=== PATIENT | female | born 1985 | race Caucasian/White ===

== ENCOUNTER 2023-04-10 19:16 | Emergency (ER) | payer MEDICAID ==
[2023-04-10] MEDS ORDERED: Ondansetron 4 MG/2 ML SDV IVPUSH ONE (19:18)
[2023-04-10] MEDS ORDERED: Morphine 4 MG/ML Syringe ONE (19:18)
[2023-04-10] MEDS ORDERED: Morphine 4 MG/ML Syringe IVPUSH ONE (19:18)
[2023-04-10] MEDS ORDERED: Ondansetron 4 MG/2 ML SDV ONE (19:19)
[2023-04-10] MEDS ORDERED: Iopamidol 755 MG/ML 500 ML Multipack Bottle IVPUSH ONE (19:44)
[2023-04-10] MEDS ORDERED: HYDROmorphone 1 MG/ML Syringe IVPUSH ONE (20:50)
== END 2023-04-10 22:29 | disposition home or self-care (01) ==
LOC: MW.ED 19:16
DX: M54.50 Low back pain, unspecified (principal); M54.2 Cervicalgia; R10.32 Left lower quadrant pain; Z88.8 Allergy status to other drugs, medicaments and biological substances; V86.65XA Passenger of 3- or 4- wheeled all-terrain vehicle (ATV) injured in nontraffic accident, initial encounter
CPT/HCPCS: 36415; 70450; 71260; 72125; 72128; 72131; 73110; 73551; 73560; 74177; 84703; 96374; 96375; 99285; J1170; J2270; J2405; Q9967; 99284

== ENCOUNTER 2023-11-24 07:57 | Emergency (ER) | payer MEDICAID ==
[2023-11-24 08:41] LABS: BASOPHILS ABSOLUTE AUTO 0.05 K/uL (0.00-0.20); EOSINOPHILS ABSOLUTE AUTO 0.05 K/uL (0.00-0.45); HEMATOCRIT 40.1 % (37.0-47.0); HEMOGLOBIN 13.7 g/dL (12.0-16.0); LYMPHOCYTES ABSOLUTE AUTO 1.71 K/uL (1.00-4.80); LYMPHOCYTES PERCENT AUTO 34.9 % (24.0-44.0); MEAN CORPUSCULAR HEMOGLOBIN 29.8 pg (28.0-32.0); MEAN CORPUSCULAR HGB CONC 34.2 g/dL (32.0-36.0); MEAN CORPUSCULAR VOLUME 87.2 fL (83.0-99.0); MEAN PLATELET VOLUME 10.3 fL (9.4-12.3); MONOCYTES ABSOLUTE AUTO 0.38 K/uL (0.00-0.80); MONOCYTES PERCENT AUTO 7.8 % (0.0-8.0); NEUTROPHILS ABSOLUTE AUTO 2.71 K/uL (1.80-7.70); NEUTROPHILS PERCENT AUTO 55.3 % (41.0-71.0); PLATELET COUNT,PLT 209 K/uL (150-400)
[2023-11-24 08:49] LABS: INR 1.01 (0.86-1.11)
[2023-11-24] MEDS: Sodium Chloride 0.9% 1,000 ML IV ONE (08:49)
[2023-11-24] MEDS: Sodium Chloride 0.9% 2.5 ML Syringe FLUSH PRN (08:50)
[2023-11-24] MEDS: Sodium Chloride 0.9% 10 ML Syringe FLUSH PRN (08:50)
[2023-11-24] MEDS: Alum Hydro/Mag Hydro/Simeth XS 15 ML, Metoclopramide 5 MG, Lidocaine 2% 5 ML PO ONE (09:03)
[2023-11-24] MEDS: Ondansetron 4 MG/2 ML SDV IVPUSH ONE (09:09)
[2023-11-24 09:12] LABS: A/G RATIO 1.1 (0.9-1.6); ALANINE AMINOTRANSFERASE,ALT 38 IU/L (14-63); ALBUMIN 3.9 g/dL (3.4-5.0); ALKALINE PHOSPHATASE 64 U/L (46-116); ASPARTATE AMNIOTRANSFERASE,AST 16 IU/L (15-37); BILIRUBIN TOTAL 0.4 mg/dL (0.2-1.0); BLOOD UREA NITROGEN,BUN 15 mg/dL (7.0-18.0); CARBON DIOXIDE,CO2 25.9 mmol/L (21.0-32.0); CHLORIDE,CL 105 mmol/L (98-107); CREATININE 0.9 mg/dL (0.6-1.0); EST CRCL DRUG DOSING (CG) 88.57 mL/min; GLUCOSE RANDOM 85 mg/dL (74-106); LIPASE 109 U/L (16-77); POTASSIUM,K 4.2 mmol/L (3.5-5.1); PROTEIN TOTAL,TP 7.3 g/dL (6.4-8.2); SODIUM,NA 143 mmol/L (136-145)
[2023-11-24 09:14] LABS: ESTIMATED GFR 84 mL/min (>60); ETHANOL BLOOD MEDICAL < 3.0 mg/dL
[2023-11-24 09:25] LABS: LACTIC ACID 1.1 mmol/L (0.4-2.0)
[2023-11-24 09:37] LABS: AMPHETAMINES SCREEN, URINE NEGATIVE (CUTOFF=500); BARBITURATE SCREEN,URINE NEGATIVE (CUTOFF=200); BENZODIAZEPINES SCREEN,URINE NEGATIVE (CUTOFF=150); BUPRENORPHINE SCREEN,URINE NEGATIVE (CUTOFF=10); METHADONE SCREEN, URINE NEGATIVE (CUTOFF=200); METHAMPHETAMINES SCREEN, URINE NEGATIVE (CUTOFF=500); OXYCODONE SCREEN,URINE NEGATIVE (CUT0FF=100); PCP SCREEN,URINE NEGATIVE (CUTOFF=25); THC SCREEN,URINE 20 NG/ML NEGATIVE (CUTOFF=50)
[2023-11-24] MEDS: Iopamidol 755 MG/ML 500 ML Multipack Bottle IVPUSH STA (10:06)
[2023-11-24] MEDS: Alum Hydro/Mag Hydro/Simeth XS 15 ML, Lidocaine 2% 5 ML PO ONE (10:53)
== END 2023-11-24 11:18 | disposition home or self-care (01) ==
LOC: MW.ED 07:57
DX: R10.84 Generalized abdominal pain (principal); Z88.8 Allergy status to other drugs, medicaments and biological substances; Z79.899 Other long term (current) drug therapy; Z90.710 Acquired absence of both cervix and uterus
CPT/HCPCS: 36415; 74177; 80053; 80305; 80307; 81025; 83605; 83690; 84484; 85025; 85610; 96361; 96374; 99284; A9270; J2405; J3490; J7030; Q9967; 93005

== ENCOUNTER 2024-02-28 08:02 | Day surgery (SDC) | payer MEDICAID ==
[2024-02-28] MEDS: Lactated Ringers 1,000 ML IV SCH (08:31)
[2024-02-28] MEDS ORDERED: propofoL 50 ML ONE (08:34)
[2024-02-28] MEDS ORDERED: Midazolam 1 MG/ML 2 ML SDV ONE (08:34)
[2024-02-28] MEDS ORDERED: Lidocaine 2% 5 ML SDV ONE (08:34)
[2024-02-28] MEDS ORDERED: Propofol 200 MG/20 ML SDV ONE ×2 (09:17→09:43)
[2024-02-28] MEDS ORDERED: Lactated Ringers 1,000 ML IV SCH (10:00)
== END 2024-02-28 10:40 | disposition home or self-care (01) ==
LOC: MW.SDS 08:02
PROVIDERS: ATTEND Surgery
DX: K21.01 Gastro-esophageal reflux disease with esophagitis, with bleeding (principal); K29.51 Unspecified chronic gastritis with bleeding; K59.09 Other constipation; K21.9 Gastro-esophageal reflux disease without esophagitis; G89.4 Chronic pain syndrome; Z79.899 Other long term (current) drug therapy; Z88.8 Allergy status to other drugs, medicaments and biological substances
CPT/HCPCS: 43239; 45378; J2250; J2704; J7120; 00813; J3490

== ENCOUNTER 2024-03-15 08:04 | Day surgery (SDC) | payer MEDICAID ==
[2024-03-15] MEDS ORDERED: Sodium Chloride 0.9% 20 ML SDV IV PRN (08:28)
[2024-03-15] MEDS ORDERED: Sodium Chloride 0.9% 10 ML Syringe FLUSH PRN (08:28)
[2024-03-15] MEDS ORDERED: Sodium Chloride 0.9% 2.5 ML Syringe FLUSH PRN (08:28)
[2024-03-15] MEDS: Sodium Chloride 0.9% 1,000 ML IV ONE (08:40)
[2024-03-15] MEDS: Ondansetron 4 MG/2 ML SDV IVPUSH ONE (08:40)
[2024-03-15] MEDS: HYDROmorphone 0.5 MG/0.5 ML Syringe IVPUSH ONE (08:40)
[2024-03-15 08:50] LABS: BASOPHILS ABSOLUTE AUTO 0.02 K/uL (0.00-0.20); BASOPHILS PERCENT AUTO 0.4 % (0.0-1.0); EOSINOPHILS ABSOLUTE AUTO 0.02 K/uL (0.00-0.45); EOSINOPHILS PERCENT AUTO 0.4 % (0.0-6.0); HEMATOCRIT 37.4 % (37.0-47.0); HEMOGLOBIN 12.6 g/dL (12.0-16.0); IMMATURE GRAN ABSOLUTE AUTO 0.01 K/uL (0.00-0.05); IMMATURE GRAN PERCENT AUTO 0.2 % (0.0-0.4); LYMPHOCYTES ABSOLUTE AUTO 1.33 K/uL (1.00-4.80); LYMPHOCYTES PERCENT AUTO 25.8 % (24.0-44.0); MEAN CORPUSCULAR HEMOGLOBIN 29.9 pg (28.0-32.0); MEAN CORPUSCULAR HGB CONC 33.7 g/dL (32.0-36.0); MEAN CORPUSCULAR VOLUME 88.6 fL (83.0-99.0); MEAN PLATELET VOLUME 9.5 fL (9.4-12.3); MONOCYTES ABSOLUTE AUTO 0.53 K/uL (0.00-0.80); MONOCYTES PERCENT AUTO 10.3 % (0.0-8.0); NEUTROPHILS ABSOLUTE AUTO 3.25 K/uL (1.80-7.70); NEUTROPHILS PERCENT AUTO 62.9 % (41.0-71.0); PLATELET COUNT,PLT 218 K/uL (150-400); RED BLOOD CELL COUNT 4.22 M/uL (4.10-5.30); WHITE BLOOD CELL COUNT,WBC 5.16 K/uL (3.9-11.3)
[2024-03-15 09:04] LABS: INR 1.01 (0.86-1.11)
[2024-03-15 09:19] LABS: A/G RATIO 1.2 (0.9-1.6); ALBUMIN 3.6 g/dL (3.4-5.0); BILIRUBIN TOTAL 0.3 mg/dL (0.2-1.0); CALCIUM 8.5 mg/dL (8.5-10.1); CARBON DIOXIDE,CO2 30.5 mmol/L (21.0-32.0); CREATININE 0.8 mg/dL (0.6-1.0); EST CRCL DRUG DOSING (CG) 99.64 mL/min; POTASSIUM,K 3.9 mmol/L (3.5-5.1); PROTEIN TOTAL,TP 6.6 g/dL (6.4-8.2)
[2024-03-15 09:22] LABS: LACTIC ACID 0.5 mmol/L (0.4-2.0)
[2024-03-15] MEDS ORDERED: propofoL 100 ML ONE (09:56)
[2024-03-15] MEDS ORDERED: Bupivacaine 0.25% 30 ML SDV ONE ×2 (09:57→10:00)
[2024-03-15] MEDS ORDERED: Ropivacaine 0.5% 5 MG/ML 30 ML SDV ONE (09:57)
[2024-03-15] MEDS ORDERED: Morphine 10 MG/ML SDV ONE (09:57)
[2024-03-15] MEDS ORDERED: Ondansetron 4 MG/2 ML SDV ONE ×2 (10:06→11:51)
[2024-03-15] MEDS ORDERED: Sugammadex Sodium 200 MG/2 ML VIAL IV ONE (10:06)
[2024-03-15] MEDS ORDERED: Dexamethasone 4 MG/ML 5 ML MDV ONE (10:06)
[2024-03-15] MEDS ORDERED: Rocuronium Bromide 50 MG/5 ML Syringe ONE ×2 (10:06→10:59)
[2024-03-15] MEDS ORDERED: Lidocaine 1% 5 ML VIAL ONE (10:06)
[2024-03-15] MEDS ORDERED: Indocyanine Green 25 MG SDV ONE (10:11)
[2024-03-15] MEDS ORDERED: Bupivacaine 0.5% 10 ML SDV ONE (10:16)
[2024-03-15] MEDS ORDERED: ceFAZolin 1 GM Vial ONE (10:17)
[2024-03-15] MEDS ORDERED: Midazolam 1 MG/ML 2 ML SDV ONE (10:21)
[2024-03-15] MEDS ORDERED: ceFAZolin 2 GM Vial ONE (10:28)
[2024-03-15] MEDS ORDERED: ceFAZolin 2 GM in Sodium Chloride 0.9% 50 ML IV ONE (10:33)
[2024-03-15] MEDS ORDERED: Albuterol 0.083% 2.5 MG/3 ML Neb Soln NEB PRN (10:39)
[2024-03-15] MEDS ORDERED: Morphine 2 MG/ML SYRINGE IVPUSH PRN ×2 (10:39→12:17)
[2024-03-15] MEDS ORDERED: droPERidol 5 MG/2 ML SDV IVPUSH PRN (10:39)
[2024-03-15] MEDS ORDERED: Metoclopramide 10 MG/2 ML SDV IVPUSH PRN (10:39)
[2024-03-15] MEDS ORDERED: Ondansetron 4 MG/2 ML SDV IVPUSH PRN (10:39)
[2024-03-15] MEDS ORDERED: Naloxone 0.4 MG/ML SDV IVPUSH PRN (10:39)
[2024-03-15] MEDS ORDERED: HYDROmorphone 1 MG/ML Syringe IVPUSH PRN (10:39)
[2024-03-15] MEDS: Lactated Ringers 1,000 ML IV SCH (10:42)
[2024-03-15] MEDS ORDERED: Scopalamine 1mg/3day Transdermal Patch TOP ONE (10:42)
[2024-03-15] MEDS ORDERED: dexmedeTOMIDine HCl 200 MCG/2 ML SDV ONE (10:44)
[2024-03-15] MEDS ORDERED: fentaNYL 100 MCG/2 ML SDV ONE (11:16)
[2024-03-15] MEDS ORDERED: Ketorolac 30 MG/ML SDV ONE (11:49)
[2024-03-15] MEDS ORDERED: Acetaminophen/HYDROcodone 325-5 MG Tab PO PRN ×2 (12:17→12:26)
[2024-03-15] MEDS: fentaNYL 50 MCG/ML SDV IVPUSH PRN (12:25)
[2024-03-15] MEDS ORDERED: Lactated Ringers 1,000 ML IV SCH (12:30)
== END 2024-03-15 14:00 | disposition home or self-care (01) ==
LOC: MW.SDS 08:04 → MW.ED 08:04 → MW.SDS 09:41
PROVIDERS: ATTEND Surgery
DX: K80.10 Calculus of gallbladder with chronic cholecystitis without obstruction (principal); G89.4 Chronic pain syndrome; F32.9 Major depressive disorder, single episode, unspecified; K21.9 Gastro-esophageal reflux disease without esophagitis; Z79.899 Other long term (current) drug therapy; Z88.8 Allergy status to other drugs, medicaments and biological substances
CPT/HCPCS: 36415; 47562; 80053; 83605; 83690; 85025; 85610; 96361; 96374; 96375; 99284; A9270; J0131; J0665; J0690; J1100; J1170; J1885; J2250; J2270; J2405; J2704; J2795; J3010; J3490; J7030; J7120; 00790; 64488; 99285

== ENCOUNTER 2024-03-30 16:11 | Emergency (ER) | payer MEDICAID ==
[2024-03-30] MEDS ORDERED: Sodium Chloride 0.9% 10 ML Syringe FLUSH PRN (16:46)
[2024-03-30] MEDS ORDERED: Sodium Chloride 0.9% 2.5 ML Syringe FLUSH PRN (16:46)
[2024-03-30 17:02] LABS: BASOPHILS ABSOLUTE AUTO 0.11 K/uL (0.00-0.20); BASOPHILS PERCENT AUTO 1.5 % (0.0-1.0); EOSINOPHILS ABSOLUTE AUTO 0.07 K/uL (0.00-0.45); EOSINOPHILS PERCENT AUTO 0.9 % (0.0-6.0); HEMATOCRIT 38.7 % (37.0-47.0); HEMOGLOBIN 13.1 g/dL (12.0-16.0); IMMATURE GRAN ABSOLUTE AUTO 0.01 K/uL (0.00-0.05); IMMATURE GRAN PERCENT AUTO 0.1 % (0.0-0.4); LYMPHOCYTES ABSOLUTE AUTO 1.93 K/uL (1.00-4.80); LYMPHOCYTES PERCENT AUTO 25.6 % (24.0-44.0); MEAN CORPUSCULAR HGB CONC 33.9 g/dL (32.0-36.0); MEAN CORPUSCULAR VOLUME 88.6 fL (83.0-99.0); MEAN PLATELET VOLUME 9.2 fL (9.4-12.3); MONOCYTES ABSOLUTE AUTO 0.55 K/uL (0.00-0.80); MONOCYTES PERCENT AUTO 7.3 % (0.0-8.0); NEUTROPHILS ABSOLUTE AUTO 4.87 K/uL (1.80-7.70); NEUTROPHILS PERCENT AUTO 64.6 % (41.0-71.0); PLATELET COUNT,PLT 258 K/uL (150-400); RED BLOOD CELL COUNT 4.37 M/uL (4.10-5.30); WHITE BLOOD CELL COUNT,WBC 7.54 K/uL (3.9-11.3)
[2024-03-30] MEDS: Sodium Chloride 0.9% 1,000 ML IV STA (17:05)
[2024-03-30] MEDS: Ondansetron 4 MG/2 ML SDV IVPUSH STA (17:05)
[2024-03-30] MEDS: Morphine 4 MG/ML Syringe IVPUSH STA ×2 (17:20→18:18)
[2024-03-30 17:36] LABS: A/G RATIO 1.1 (0.9-1.6); ALBUMIN 3.9 g/dL (3.4-5.0); BILIRUBIN TOTAL 0.3 mg/dL (0.2-1.0); CALCIUM 8.7 mg/dL (8.5-10.1); CARBON DIOXIDE,CO2 30.1 mmol/L (21.0-32.0); EST CRCL DRUG DOSING (CG) 79.72 mL/min; POTASSIUM,K 3.7 mmol/L (3.5-5.1); PROTEIN TOTAL,TP 7.5 g/dL (6.4-8.2)
[2024-03-30 17:38] LABS: MAGNESIUM 1.7 mg/dL (1.8-2.4)
== END 2024-03-30 18:56 | disposition home or self-care (01) ==
LOC: MW.ED 16:11
DX: R10.13 Epigastric pain (principal); R10.10 Upper abdominal pain, unspecified; R11.2 Nausea with vomiting, unspecified; Z75.8 Other problems related to medical facilities and other health care; Z90.49 Acquired absence of other specified parts of digestive tract; Z90.710 Acquired absence of both cervix and uterus; Z79.899 Other long term (current) drug therapy; Z79.891 Long term (current) use of opiate analgesic; Z88.8 Allergy status to other drugs, medicaments and biological substances
CPT/HCPCS: 36415; 80053; 83735; 84484; 84703; 85025; 93005; 96361; 96374; 96375; 99284; J2270; J2405; J7030; 93010

== ENCOUNTER 2024-06-28 19:13 | Emergency (ER) | payer MEDICAID, OTHER ==
[2024-06-28] MEDS: Ondansetron 4 MG/2 ML SDV IVPUSH ONE (19:52)
[2024-06-28 20:09] LABS: BASOPHILS ABSOLUTE AUTO 0.06 K/uL (0.00-0.20); BASOPHILS PERCENT AUTO 0.6 % (0.0-1.0); EOSINOPHILS ABSOLUTE AUTO 0.09 K/uL (0.00-0.45); EOSINOPHILS PERCENT AUTO 0.9 % (0.0-6.0); HEMATOCRIT 40.8 % (37.0-47.0); HEMOGLOBIN 13.8 g/dL (12.0-16.0); IMMATURE GRAN ABSOLUTE AUTO 0.02 K/uL (0.00-0.05); IMMATURE GRAN PERCENT AUTO 0.2 % (0.0-0.4); LYMPHOCYTES ABSOLUTE AUTO 1.77 K/uL (1.00-4.80); LYMPHOCYTES PERCENT AUTO 18.6 % (24.0-44.0); MEAN CORPUSCULAR HEMOGLOBIN 29.6 pg (28.0-32.0); MEAN CORPUSCULAR HGB CONC 33.8 g/dL (32.0-36.0); MEAN CORPUSCULAR VOLUME 87.4 fL (83.0-99.0); MEAN PLATELET VOLUME 9.9 fL (9.4-12.3); MONOCYTES ABSOLUTE AUTO 0.59 K/uL (0.00-0.80); MONOCYTES PERCENT AUTO 6.2 % (0.0-8.0); NEUTROPHILS ABSOLUTE AUTO 7.01 K/uL (1.80-7.70); NEUTROPHILS PERCENT AUTO 73.5 % (41.0-71.0); PLATELET COUNT,PLT 186 K/uL (150-400); RED BLOOD CELL COUNT 4.67 M/uL (4.10-5.30); WHITE BLOOD CELL COUNT,WBC 9.54 K/uL (3.9-11.3)
[2024-06-28 20:20] LABS: A/G RATIO 1.3 (0.9-1.6); ALANINE AMINOTRANSFERASE,ALT 31 IU/L (14-63); ALBUMIN 4.4 g/dL (3.4-5.0); ALKALINE PHOSPHATASE 94 U/L (46-116); ASPARTATE AMNIOTRANSFERASE,AST 27 IU/L (15-37); BILIRUBIN TOTAL 0.4 mg/dL (0.2-1.0); BLOOD UREA NITROGEN,BUN 8 mg/dL (7.0-18.0); CALCIUM 8.6 mg/dL (8.5-10.1); CHLORIDE,CL 100 mmol/L (98-107); CREATININE 0.8 mg/dL (0.6-1.0); EST CRCL DRUG DOSING (CG) 98.67 mL/min; ETHANOL BLOOD MEDICAL <3 mg/dL; GLUCOSE RANDOM 116 mg/dL (74-106); POTASSIUM,K 4.1 mmol/L (3.5-5.1); PROTEIN TOTAL,TP 7.9 g/dL (6.4-8.2); SODIUM,NA 136 mmol/L (136-145)
[2024-06-28 20:22] LABS: ESTIMATED GFR 96 mL/min (>60)
== END 2024-06-28 21:38 | disposition home or self-care (01) ==
LOC: MW.ED 19:13
DX: R55 Syncope and collapse (principal); Z88.8 Allergy status to other drugs, medicaments and biological substances; Z79.890 Hormone replacement therapy; Z79.899 Other long term (current) drug therapy; Z90.49 Acquired absence of other specified parts of digestive tract; Z90.710 Acquired absence of both cervix and uterus; V47.5XXA Car driver injured in collision with fixed or stationary object in traffic accident, initial encounter
CPT/HCPCS: 36415; 70450; 72125; 80053; 80307; 83605; 84146; 85025; 96374; 99284; J2405

== ENCOUNTER 2025-04-13 13:21 | Emergency (ER) | payer BC ==
[2025-04-13] MEDS: Ondansetron 4 MG/2 ML SDV IVPUSH ONE (14:08)
[2025-04-13] MEDS: Ketorolac 30 MG/ML SDV IVPUSH ONE (14:08)
[2025-04-13 14:11] LABS: BASOPHILS ABSOLUTE AUTO 0.06 K/uL (0.00-0.20); BASOPHILS PERCENT AUTO 0.6 % (0.0-1.0); EOSINOPHILS ABSOLUTE AUTO 0.03 K/uL (0.00-0.45); EOSINOPHILS PERCENT AUTO 0.3 % (0.0-6.0); IMMATURE GRAN ABSOLUTE AUTO 0.01 K/uL (0.00-0.05); IMMATURE GRAN PERCENT AUTO 0.1 % (0.0-0.4); LYMPHOCYTES ABSOLUTE AUTO 1.56 K/uL (1.00-4.80); LYMPHOCYTES PERCENT AUTO 15.8 % (24.0-44.0); MEAN PLATELET VOLUME 9.4 fL (9.4-12.3); MONOCYTES ABSOLUTE AUTO 0.53 K/uL (0.00-0.80); MONOCYTES PERCENT AUTO 5.4 % (0.0-8.0); NEUTROPHILS ABSOLUTE AUTO 7.69 K/uL (1.80-7.70); NEUTROPHILS PERCENT AUTO 77.8 % (41.0-71.0); NRBC ABSOLUTE 0.00 K/uL (0.00-0.02); NRBC PERCENT 0.0 /100WBC (0.0-0.2); PLATELET COUNT,PLT 270 K/uL (150-400); RED BLOOD CELL COUNT 4.42 M/uL (4.10-5.30); WHITE BLOOD CELL COUNT,WBC 9.88 K/uL (3.9-11.3)
[2025-04-13] MEDS: Lactated Ringers 1,000 ML IV ONE (14:12)
[2025-04-13 14:31] LABS: APPEARANCE,URINE CLEAR; GLUCOSE,URINE NEGATIVE (NEGATIVE); OCCULT BLOOD,URINE NEGATIVE (NEGATIVE)
[2025-04-13 14:33] LABS: A/G RATIO 1.3 (0.9-1.6); ALANINE AMINOTRANSFERASE,ALT 16 IU/L (14-63); ASPARTATE AMNIOTRANSFERASE,AST 16 IU/L (15-37); BILIRUBIN TOTAL 0.4 mg/dL (0.2-1.0); BLOOD UREA NITROGEN,BUN 13 mg/dL (7.0-18.0); CARBON DIOXIDE,CO2 27.6 mmol/L (21.0-32.0); CHLORIDE,CL 102 mmol/L (98-107); CREATININE 0.9 mg/dL (0.6-1.0); GLUCOSE RANDOM 103 mg/dL (74-106); POTASSIUM,K 3.5 mmol/L (3.5-5.1); PROTEIN TOTAL,TP 7.3 g/dL (6.4-8.2); SODIUM,NA 140 mmol/L (136-145)
[2025-04-13 14:41] LABS: ESTIMATED GFR 83 mL/min (>60)
== END 2025-04-13 15:34 | disposition home or self-care (01) ==
LOC: MW.ED 13:21
DX: R11.2 Nausea with vomiting, unspecified (principal); R25.1 Tremor, unspecified; K21.9 Gastro-esophageal reflux disease without esophagitis; Z88.8 Allergy status to other drugs, medicaments and biological substances; Z79.890 Hormone replacement therapy; Z79.899 Other long term (current) drug therapy
CPT/HCPCS: 36415; 80053; 81003; 81025; 83690; 85025; 96374; 96375; 99284; J1885; J2405; J7120; 99283